=== PATIENT | male | born 1990 | race Caucasian/White ===

== ENCOUNTER 2020-08-13 14:12 | Emergency (ER) | payer SELFPAY ==
[2020-08-13 14:29] VITALS: BP 131/93; PULSE 91; RESP 17; TEMP 36.9; O2SAT 97; BMI 22.3
--- NOTE | 2020-08-13 14:35 | ED.MALEGU ---
HPI - Male Genitourinary General Chief complaint: Urogenital-Male Stated complaint: STD TESTING Time Seen by Provider: 08/13/20 14:33 History of Present Illness HPI Narrative: patient sexual partner told him she has chlamydia and he wants to be treated He denies any symptoms, no burning with urination no discharge no abdominal pain no sores no lesions Related Data Allergies Allergy/AdvReac Type Severity Reaction Status Date / Time No Known Allergies Allergy Verified 08/13/20 14:34 Review of Systems Review of Systems: no dysuria no discharge no fever no chills no abdominal pain no back pain no nausea no vomiting Yes all other systems are reviewed and are negative [facility] Past Medical History Source: nursing notes reviewed Medical History (Updated 08/13/20 @ 14:44 by TERRIE Qureshi) No known health problems No known health problems Social History Social History Alcohol intake: unknown Smoking Status: Unknown if ever smoked Use of substances other than those prescribed or required for medical reasons: Unknown Advance Directives: No Advance Directives Information Provided: No Physical Exam Vital Signs and I&O and Narrative: Vital Signs and I&O: Vital Signs Temp 98.5 F 08/13/20 14:29 Pulse 91 08/13/20 14:29 Resp 17 08/13/20 14:29 BP 131/93 H 08/13/20 14:29 Pulse Ox 97 08/13/20 14:29 Intake & Output 08/12/20 08/13/20 08/13/20 18:59 06:59 18:59 Weight 58.967 kg Body Mass Index 22.3 physical exam no acute distress neck is supple respiratory no acute respiratory distress abdomen soft nontender genital exam no discharge no lesions extremities for range of motion x4 neuro A&O x3 Course Reevaluation(s) Reevaluation #1: patient refused Gc chlamydia swab as he was nervous it would be too uncomfortable He says he will [facility] after he gets the treatment with Rocephin and Zithromax to confirm efficacy Discharge Plan Discharge Clinical Impression: Exposure to sexually transmitted disease (STD) Patient Disposition: Home, Self-Care Additional Instructions: follow with clinic for further STD testing and for chlamydia test to confirm treatment 6s You were treated with Rocephin and Zithromax for chlamydia exposure Return to ER any time any worse condition or concerns No sexual contact until all partners are treated and testing confirms successive treatment, as well as all sexual partners getting treated for chlamydia exposure
[2020-08-13] MEDS: cefTRIAXone sodium 250 MG VIAL IM (15:52)
[2020-08-13] MEDS: Azithromycin 500 MG TABLET 1000 MG PO (15:52)
[2020-08-13] MEDS: Lidocaine HCl 1 % 20 ML VIAL 5 ML SUBCUT (15:55)
== END 2020-08-13 16:02 | disposition home or self-care (01) ==
PROVIDERS: Emergency Provider Emergency Medicine
DX: Z20.2 Contact with and (suspected) exposure to infections with a predominantly sexual mode of transmission (principal)
CPT/HCPCS: 96372; 99284; J0696